=== PATIENT | female | born 1970 | race Caucasian/White ===

== ENCOUNTER 2018-01-11 10:37 | Emergency (ER) | payer MEDICAID ==
[~2018-01-11] VITALS: Ht 162.6 cm; Wt 119.3 kg
[~2018-01-11 10:37] MED LIST: ALPR0.5T96 PO
[2018-01-11 10:41] VITALS: BP_SYST 142
[2018-01-11] MEDS ORDERED: ACETAMINOPHEN 500 MG TABLET PO ONE (11:00)
[2018-01-11 11:50] VITALS: BP_SYST 138
== END 2018-01-11 11:50 | disposition home or self-care (01) ==
LOC: SED 10:37
DX: G44.209 Tension-type headache, unspecified, not intractable (principal); J20.9 Acute bronchitis, unspecified; I10 Essential (primary) hypertension
CPT/HCPCS: 99283

== ENCOUNTER 2018-06-23 10:39 | Emergency (ER) | payer MEDICAID ==
[~2018-06-23] VITALS: Ht 162.6 cm; Wt 118.4 kg
[~2018-06-23 10:39] MED LIST changes: +ALPR0.5T PO; -ALPR0.5T96 PO
[2018-06-23 11:08] VITALS: BP_SYST 140
[2018-06-23 12:14] VITALS: BP_SYST 141
== END 2018-06-23 12:15 | disposition home or self-care (01) ==
LOC: SED 10:39
DX: L03.031 Cellulitis of right toe (principal); I10 Essential (primary) hypertension; F41.9 Anxiety disorder, unspecified
CPT/HCPCS: 99283

== ENCOUNTER 2019-07-26 15:56 | Emergency (ER) | payer MEDICAID ==
[~2019-07-26] VITALS: Ht 162.6 cm; Wt 97.5 kg
[2019-07-26 16:15] VITALS: BP_SYST 108
[2019-07-26] MEDS ORDERED: KETOROLAC TROMETHAMINE 60 MG/2 ML VIAL IM ONE (16:45)
[2019-07-26 18:20] VITALS: BP_SYST 108
== END 2019-07-26 18:20 | disposition home or self-care (01) ==
LOC: SED 15:56
DX: I10 Essential (primary) hypertension (principal); F41.9 Anxiety disorder, unspecified; S39.012A Strain of muscle, fascia and tendon of lower back, initial encounter; X50.0XXA Overexertion from strenuous movement or load, initial encounter; Y93.89 Activity, other specified; Y92.89 Other specified places as the place of occurrence of the external cause; Y99.8 Other external cause status
CPT/HCPCS: 81002; 96372; 99283; J1885

== ENCOUNTER 2019-11-23 10:45 | Emergency (ER) | payer MEDICAID ==
[~2019-11-23] VITALS: Ht 162.6 cm; Wt 122.5 kg
--- NOTE | 2019-11-23 11:00 | NUR ---
Patient to ER bed 6 to gown for evaluation. Side rails up. Report given to ALICE Wallace.
[2019-11-23] MEDS ORDERED: KETOROLAC TROMETHAMINE 60 MG/2 ML VIAL IM ONE (11:15)
--- NOTE | 2019-11-23 11:15 | NUR ---
ER Dr. Munguia at bedside examining patient.
--- NOTE | 2019-11-23 11:30 | NUR ---
PT presents to ER C/O cold symptoms. Pt A&Ox4, skin pink and warm, patient denies N/V/D, cough, nasal congestion, pain 05/16 . Patient states she has cough and headache x2 days
--- NOTE | 2019-11-23 12:19 | NUR ---
Patient given written and verbal discharge instructions and verbalizes understanding. ER MD discussed with patient the results and treatment provided. Patient in stable condition. ID arm band removed. Rx of Tamiflu, Motrin, Promethazine given. Patient educated on pain management and to follow up with PMD. Pain Scale 4/10 tolerable for pt. Opportunity for questions provided and answered. Medication side effect fact sheet provided.
== END 2019-11-23 12:20 | disposition home or self-care (01) ==
LOC: SED 10:45
DX: J11.1 Influenza due to unidentified influenza virus with other respiratory manifestations (principal); I10 Essential (primary) hypertension; F41.9 Anxiety disorder, unspecified
CPT/HCPCS: 86710; 96372; 99283; J1885; 36415

== ENCOUNTER 2022-11-19 20:40 | Emergency (ER) | payer MEDICAID ==
[~2022-11-19] VITALS: Ht 167.6 cm; Wt 117.9 kg
[~2022-11-19 20:40] MED LIST changes: +HYDR-3921 PO; +IBUP-1969 PO
[2022-11-19 20:48] VITALS: BP_SYST 133
--- NOTE | 2022-11-19 22:34 | NUR ---
Patient left without being seen. ER MD aware.
== END 2022-11-19 22:34 | disposition left against medical advice (07) ==
LOC: SED 20:40
DX: R05.9 Cough, unspecified (principal); R06.02 Shortness of breath; R51.9 Headache, unspecified; Z53.21 Procedure and treatment not carried out due to patient leaving prior to being seen by health care provider

== ENCOUNTER 2022-12-18 10:36 | Emergency (ER) | payer MEDICAID ==
[~2022-12-18] VITALS: Ht 162.6 cm; Wt 90.7 kg
[2022-12-18 11:00] VITALS: BP_SYST 159
[2022-12-18 11:32] LABS: BASOPHILS # (AUTO) 0.1 K/uL (0.0-0.2); BASOPHILS % (AUTO) 0.6 % (0.0-2.0); EOSINOPHILS # (AUTO) 0.1 K/uL (0.0-0.4); EOSINOPHILS % (AUTO) 1.2 % (0.0-4.0); HEMATOCRIT 36.2 % (36-48); HEMOGLOBIN 12.1 g/dL (12.0-16.0); LYMPHOCYTES # (AUTO) 1.8 K/uL (1.0-5.5); LYMPHOCYTES % (AUTO) 19.2 % (20.5-51.5); MEAN CORPUSCULAR HEMOGLOBIN 28 pg (27-31); MEAN CORPUSCULAR HGB CONC 33 % (32-36); MEAN CORPUSCULAR VOLUME 85 fL (79.0-98.0); MONOCYTES % (AUTO) 10.3 % (1.7-9.3); NEUTROPHILS # (AUTO) 6.4 K/uL (1.8-7.7); NEUTROPHILS % (AUTO) 68.7 % (40.0-70.0); PLATELET COUNT (AUTO) 246 K/uL (130-430); RED BLOOD CELL COUNT(AUTO) 4.29 MIL/uL (4.2-6.2); RED CELL DISTRIBUTION WIDTH 15.6 % (9.0-15.0); WHITE BLOOD COUNT (AUTO) 9.4 K/uL (4.8-10.8)
[2022-12-18 11:35] LABS: ERYTHROCYTE SEDIMENTATION RATE 67 MM/HR (0-20)
[2022-12-18 11:42] LABS: ANION GAP 6 (5-15); CHLORIDE 102 mmol/L (98-107); CREATININE 0.83 mg/dL (0.55-1.30); GFR AFRICAN AMERICAN 93 mL/min (>90); GLUCOSE 98 mg/dL (70-99); UREA NITROGEN, BLOOD 11 mg/dL (8-21)
[2022-12-18 11:47] LABS: ALANINE AMINOTRANSFERASE 28 U/L (12-78); ALBUMIN 3.7 g/dL (3.4-4.8); ASPARTATE AMINOTRANSFERASE 15 U/L (10-37); C-REACTIVE PROTEIN QUANT 6.3 mg/dL (0-0.5); TOTAL BILIRUBIN < 0.1 mg/dL (0.0-1.0)
[2022-12-18] MEDS ORDERED: LEVO750T64 PO (13:21)
[2022-12-18] MEDS ORDERED: levoFLOXacin 500 MG TABLET PO ONE (13:30)
[2022-12-18] MEDS ORDERED: IBUPROFEN 800 MG TABLET PO ONE (13:30)
== END 2022-12-18 12:30 | disposition home or self-care (01) ==
LOC: SED 10:36
DX: H60.92 Unspecified otitis externa, left ear (principal); K08.89 Other specified disorders of teeth and supporting structures; E11.9 Type 2 diabetes mellitus without complications; I10 Essential (primary) hypertension; Z79.899 Other long term (current) drug therapy
CPT/HCPCS: 36415; 70450-TC; 76376; 80053; 85025; 85651-TC; 86140; 87040; 99284

== ENCOUNTER 2023-03-13 18:22 | Emergency (ER) | payer MEDICAID ==
[~2023-03-13] VITALS: Ht 167.6 cm; Wt 117.9 kg
[~2023-03-13 18:22] MED LIST changes: +AMOX-423 PO; +LEVO750T64 PO; +OXYC-128 PO
[2023-03-13 18:30] VITALS: BP_SYST 186
--- NOTE | 2023-03-13 18:30 | NUR ---
Patient triaged and placed in waiting room. VSS and patient appears in no acute distress at this time. Accompanied by DAUGHTER, awaiting available bed, and MD notified of need for MSE.
--- NOTE | 2023-03-13 19:45 | NUR ---
Patient to ER bed CH1 to gown for evaluation. Side rails up. Report given to ALICE VARELA.
--- NOTE | 2023-03-13 20:05 | NUR ---
MD KIM BY BEDSIDE
[2023-03-13] MEDS ORDERED: KETOROLAC TROMETHAMINE 60 MG/2 ML VIAL IM ONE (20:15)
[2023-03-13] MEDS ORDERED: cefTRIAXone 1 GM in LIDOCAINE 1%, 20 ML MDV 2.1 ML IM ONE (20:15)
[2023-03-13] MEDS ORDERED: NAPR-1172 PO (20:22)
[2023-03-13] MEDS ORDERED: PENI250T2 PO (20:22)
[2023-03-13 20:27] VITALS: BP_SYST 186
--- NOTE | 2023-03-13 20:29 | NUR ---
Patient given written and verbal discharge instructions and verbalizes understanding. ER MD discussed with patient the results and treatment provided. Patient in stable condition. ID arm band removed. Rx of NAPROXEN, PENICILLIN V POTASSIUM given. Patient educated on TOOTH INJURIES management and to follow up with PMD. Pain Scale . Opportunity for questions provided and answered. Medication side effect fact sheet provided.
== END 2023-03-13 20:27 | disposition home or self-care (01) ==
LOC: SED 18:22
DX: M27.3 Alveolitis of jaws (principal); K08.89 Other specified disorders of teeth and supporting structures; E11.9 Type 2 diabetes mellitus without complications; I10 Essential (primary) hypertension; Z79.899 Other long term (current) drug therapy
CPT/HCPCS: 99284; 96372; J0696; J1885; J2001

== ENCOUNTER 2023-12-22 15:18 | Emergency (ER) | payer MEDICAID ==
[~2023-12-22] VITALS: Ht 162.6 cm; Wt 113.4 kg
[~2023-12-22 15:18] MED LIST changes: +NAPR-1172 PO; +NAPR-690 PO; +PENI250T2 PO; +PENI500T PO
[2023-12-22 16:00] VITALS: BP_SYST 138; PULSE 87; RESP 18; TEMP 98.6; O2SAT 98
[2023-12-22 17:12] LABS: BASOPHILS # (AUTO) 0.1 K/uL (0.0-0.2); BASOPHILS % (AUTO) 0.6 % (0.0-2.0); EOSINOPHILS # (AUTO) 0.1 K/uL (0.0-0.4); EOSINOPHILS % (AUTO) 0.9 % (0.0-4.0); HEMATOCRIT 39.5 % (36-48); HEMOGLOBIN 13.3 g/dL (12.0-16.0); LYMPHOCYTES # (AUTO) 2.2 K/uL (1.0-5.5); LYMPHOCYTES % (AUTO) 13.9 % (20.5-51.5); MEAN CORPUSCULAR HEMOGLOBIN 28 pg (27-31); MEAN CORPUSCULAR HGB CONC 34 % (32-36); MEAN CORPUSCULAR VOLUME 83 fL (79.0-98.0); MONOCYTES # (AUTO) 1.3 K/uL (0.0-1.0); MONOCYTES % (AUTO) 8.1 % (1.7-9.3); NEUTROPHILS % (AUTO) 76.5 % (40.0-70.0); PLATELET COUNT (AUTO) 320 K/uL (130-430); RED BLOOD CELL COUNT(AUTO) 4.74 MIL/uL (4.2-6.2); RED CELL DISTRIBUTION WIDTH 14.4 % (9.0-15.0); WHITE BLOOD COUNT (AUTO) 15.7 K/uL (4.8-10.8)
[2023-12-22 17:17] LABS: SERUM HCG (QUALITATIVE) NEGATIVE (NEGATIVE)
[2023-12-22 17:31] LABS: BILIRUBIN,URINE NEGATIVE (NEGATIVE); BLOOD, URINE 3+ (NEGATIVE); COLOR,URINE YELLOW (YELLOW); GLUCOSE,URINE NEGATIVE (NEGATIVE); KETONES,URINE 1+ (NEGATIVE); LEUKOCYTE ESTERASE ,URINE 2+ (NEGATIVE); NITRITE, URINE NEGATIVE (NEGATIVE); PROTEIN URINE 2+ (NEGATIVE); UROBILINOGEN,URINE 0.2 (0.2-1.0)
[2023-12-22 17:40] LABS: CLARITY/URINE HAZY (CLEAR)
[2023-12-22 17:41] LABS: BACTERIA,URINE MODERATE /HPF (None Seen); WBC,URINE 80-100 /HPF (0-3)
[2023-12-22 17:42] LABS: MUCUS,URINE None Seen /LPF (None Seen)
[2023-12-22 17:50] LABS: CALCIUM 9.3 mg/dL (8.4-11.0); CREATININE 0.77 mg/dL (0.55-1.30)
[2023-12-22] MEDS ORDERED: NITR-85 PO (18:31)
[2023-12-22] MEDS ORDERED: IBUP-1969 PO (18:31)
[2023-12-22] MEDS: cefTRIAXone 1 GM in LIDOCAINE 1%, 20 ML MDV 2.1 ML IM ONE (19:41)
[2023-12-22 19:42] VITALS: BP_SYST 138; PULSE 87; RESP 18; TEMP 98.6; O2SAT 98
== END 2023-12-22 19:42 | disposition home or self-care (01) ==
LOC: SED 15:18
DX: N39.0 Urinary tract infection, site not specified (principal); R30.0 Dysuria; R35.89 Other polyuria; R39.15 Urgency of urination; I10 Essential (primary) hypertension; Z79.899 Other long term (current) drug therapy
CPT/HCPCS: 99283; 80048; 81001; 84703; 85025; 87086; 87186; 36415; 96372; 83605; 82397; 81000; 81015; J0696; J2001